=== PATIENT | female | born 1960 | race Caucasian/White ===

== ENCOUNTER → 2023-11-06 11:10 | Outpatient (REF) | payer OTHER, SELFPAY | LOC: RAD 11:10 | PROVIDERS: ATTENDING PHYSICIAN Nurse Practitioner Adult Health | DX: M53.3 Sacrococcygeal disorders, not elsewhere classified (principal); W19.XXXA Unspecified fall, initial encounter; M54.50 Low back pain, unspecified; M25.512 Pain in left shoulder; M25.511 Pain in right shoulder | CPT/HCPCS: 72110; 72220; 73030 ==

== ENCOUNTER → 2024-04-08 13:37 | Outpatient (REF) | payer OTHER, SELFPAY | LOC: RAD 13:37 | PROVIDERS: ATTENDING PHYSICIAN Nurse Practitioner Adult Health | DX: R39.9 Unspecified symptoms and signs involving the genitourinary system (principal); R39.15 Urgency of urination; M54.6 Pain in thoracic spine | CPT/HCPCS: 76770 ==

== ENCOUNTER → 2024-08-15 08:33 | Outpatient (REF) | payer OTHER, BC, SELFPAY | LOC: RAD 08:33 | PROVIDERS: ATTENDING PHYSICIAN Obstetrics & Gynecology; FAMILY PHYSICIAN Nurse Practitioner Adult Health | DX: N95.0 Postmenopausal bleeding (principal) | CPT/HCPCS: 76830; 76856 ==

== ENCOUNTER → 2025-05-08 10:38 | Outpatient (REF) | payer OTHER, SELFPAY | LOC: RAD 10:38 | PROVIDERS: ATTENDING PHYSICIAN Nurse Practitioner Adult Health | DX: M85.80 Other specified disorders of bone density and structure, unspecified site (principal); E55.9 Vitamin D deficiency, unspecified | CPT/HCPCS: 77080 ==

== ENCOUNTER → 2025-07-13 13:23 | Outpatient (REF) | payer OTHER, SELFPAY | LOC: RCS 13:23 | PROVIDERS: ATTENDING PHYSICIAN Nurse Practitioner Adult Health | DX: R07.89 Other chest pain (principal); R00.2 Palpitations | CPT/HCPCS: 93225; 93226 ==

== ENCOUNTER → 2025-08-19 12:46 | Outpatient (REF) | payer OTHER, SELFPAY | LOC: RCS 12:46 | PROVIDERS: ATTENDING PHYSICIAN Internal Medicine Cardiovascular Disease; FAMILY PHYSICIAN Nurse Practitioner Adult Health | DX: R00.2 Palpitations (principal) | CPT/HCPCS: 93306 ==